=== PATIENT | female | born 1950 | race Hispanic/Latino ===

== ENCOUNTER 2016-10-29 10:01 | Day surgery (SDC) | payer MEDICARE ==
[2016-10-29 12:07] VITALS: BMI 22.0
[2016-10-29] MEDS ORDERED: Propofol 10 mg/ml Inj (20 ML) ONE ×2 (12:22→12:45)
[2016-10-29 13:24] VITALS: TEMP 96.8
[2016-10-29 13:25] VITALS: RESP 14
[2016-10-29 14:39] VITALS: O2SAT 99
[2016-10-29 14:41] VITALS: BP 135/80; PULSE 73
== END 2016-10-29 14:20 | disposition home or self-care (01) ==
LOC: C.ENDO 10:01
PROVIDERS: ATTEND Internal Medicine Gastroenterology
DX: Z12.11 Encounter for screening for malignant neoplasm of colon (principal); K57.30 Diverticulosis of large intestine without perforation or abscess without bleeding; K64.8 Other hemorrhoids
CPT/HCPCS: 45378; J2704